=== PATIENT | female | born 1950 | race Caucasian/White ===

== ENCOUNTER 2017-05-20 16:14 | Inpatient (IN) | payer MEDICARE, BC ==
--- NOTE | 2017-05-20 17:37 | RAD ---
INDICATION: Short of breath COMPARISON: November 27, 2015 TECHNIQUE: An AP portable view obtained at 1720 hours is submitted. FINDINGS: Bones/Soft Tissues: There are no acute bony findings. Cardiomediastinal: The heart is normal in size. The central pulmonary vessels and interstitium are prominent consistent with mild interstitial congestion.. Lungs: There are no infiltrates. Pleura: There are no pleural effusions. Other: None IMPRESSION: MILD INTERSTITIAL CONGESTION.
[2017-05-20 17:58] LABS: Hematocrit 35 % (35-47); Hemoglobin 11.7 g/dl (12.0-16.0); Mean Corpuscular HGB Conc 34 g/dl (31-36); Mean Corpuscular Hemoglobin 33 pg (27-31); Mean Corpuscular Volume 99 fL (80-97); Mean Platelet Volume 8 um3 (7.4-10.4); Red Blood Count 3.53 10^6/ul (4.0-5.4); Red Cell Distribution Width 14 % (10.5-15); White Blood Count 13.4 10^3/ul (3.5-10.8)
[2017-05-20 18:15] LABS: Troponin I 0.02 ng/mL (<0.04)
[2017-05-20 18:16] LABS: Albumin 4.2 g/dL (3.2-5.2); BUN/Creatinine Ratio 7.1 (8-20); C Reactive Protein 4.37 mg/L (< 5.00); Calcium 9.6 mg/dL (8.6-10.3); EGFR African American 7.8 (>60); Globulin 3.2 g/dL (2-4); Magnesium 2.9 mg/dL (1.9-2.7); Total Bilirubin 0.4 mg/dL (0.2-1.0); Total Protein 7.4 g/dL (6.4-8.9)
[2017-05-20 18:22] LABS: Potassium 7.7 mmol/L (3.5-5.0)
[2017-05-20] MEDS ORDERED: Insulin REGULAR(*) 1 UNITS UNIT IV PUSH ONE (18:33)
[2017-05-20] MEDS ORDERED: Dextrose 50% Syringe 50 ML* 25 GM/50 ML SYRINGE IV PUSH ONE (18:33)
[2017-05-20 18:45] LABS: TSH (Thyroid Stimulating Horm) 2.75 mcIU/mL (0.34-5.60)
--- NOTE | 2017-05-20 18:48 | ED ---
Marissa Hastings Edward, scribed for Richard Hand MD on 05/20/17 at 1750 . Shortness of Breath - HPI Summary HPI Summary: 66 y/o female presents to ED c/o sudden onset, acute on chronic SOB starting this morning that has gotten progressively worse throughout the day. The SOB is aggravated with standing up and ambulating. Denies pedal edema, pain in the legs. Associated sx: per triage, the pt has weakness in her lower extremities. PMHx COPD, AFIB, emphysema, CHF, dialysis (2x a week). - History of Current Complaint Chief Complaint: EDShortnessOfBreath Time Seen by Provider: 05/20/17 17:46 Hx Obtained From: Patient Onset/Duration: Sudden Onset, Lasting Hours - This morning, Still Present Dyspnea At: Exertion Aggrevating Factors: Movement, Nothing - Standing - Allergy/Home Medications Allergies/Adverse Reactions: Allergies Allergy/AdvReac Type Severity Reaction Status Date / Time Adhesive Tape Allergy Rash Verified 05/17/16 14:20 Heparin Allergy WELTS, Verified 05/17/16 14:20 ITCHY RASH Sulfa Antibiotics Allergy Rash Verified 05/17/16 14:20 Morphine AdvReac SENSITIVE Verified 05/17/16 14:20 TO - STATES SMALL INTERMITTENT DOSES OK avoids NSAIDS AdvReac See Comment Uncoded 05/17/16 14:20 PMH/Surg Hx/FS Hx/Imm Hx Previously Healthy: No Endocrine/Hematology History: Reports: Hx Diabetes Cardiovascular History: Reports: Hx Congestive Heart Failure, Hx Hypertension, Other Cardiovascular Problems/Disorders - atrial fib Denies: Hx Pacemaker/ICD Respiratory History: Reports: Hx Asthma, Hx Chronic Bronchitis, Hx Chronic Obstructive Pulmonary Disease (COPD), Hx Seasonal Allergies GI History: Reports: Hx Gastroesophageal Reflux Disease, Other GI Disorders - PROBLEMS WITH CONSTIPATION History: Reports: Other Problems/Disorders - frequent UTI's Musculoskeletal History: Reports: Hx Arthritis - OSTEO, Other Musculoskeletal History - Degenerative discs Sensory History: Reports: Hx Cataracts, Hx Contacts or Glasses - reading only Denies: Hx Hearing Aid Opthamlomology History: Reports: Hx Cataracts, Hx Contacts or Glasses - reading only Neurological History: Denies: Hx Headaches Psychiatric History: Denies: Hx Anxiety, Hx Depression, Hx Panic Disorder - Cancer History Hx Chemotherapy: No Hx Radiation Therapy: No - Surgical History Surgery Procedure, Year, and Place: RT KNEE REPLACEMENT 2011. LT KNEE 09/13. LSP SURGERY X4 (2001,2003X2, 2003). GALLBLADDER 1996. TOTAL HYSTERECTOMY 1987. TONSILS AGE 7. LT KNEE ACL 1996 Hx Anesthesia Reactions: Yes - RESP. ARREST-2011- WHILE ON THE MORPHINE DRIP PER PATIENT Infectious Disease History: No Infectious Disease History: Denies: Traveled Outside the [place] in Last 30 Days - Social History Alcohol Use: None Hx Substance Use: No Substance Use Type: Reports: None Hx Tobacco Use: No Smoking Status (MU): Never Smoked Tobacco Review of Systems Constitutional: Negative Eyes: Negative ENT: Negative Cardiovascular: Negative Positive: Shortness Of Breath Gastrointestinal: Negative Genitourinary: Negative Musculoskeletal: Negative Negative: Edema Skin: Negative Positive: Weakness - Lower extremities Psychological: Normal All Other Systems Reviewed And Are Negative: Yes Physical Exam Triage Information Reviewed: Yes Vital Signs On Initial Exam: Initial Vitals Temp Pulse Resp BP Pulse Ox 96.5 F 53 28 120/55 100 05/20/17 16:15 05/20/17 16:15 05/20/17 16:15 05/20/17 16:15 05/20/17 16:15 Vital Signs Reviewed: Yes Appearance: Positive: Well-Appearing, No Pain Distress Skin: Positive: Warm, Skin Color Reflects Adequate Perfusion, Dry Head/Face: Positive: Normal Head/Face Inspection Eyes: Positive: EOMI, ELIEZER ENT: Positive: Normal ENT inspection Neck: Positive: Supple, Nontender Respiratory/Lung Sounds: Positive: Clear to Auscultation, Breath Sounds Present , Other - Mild respiratory distress. Limited air movement in lungs. Cardiovascular: Positive: RRR Abdomen Description: Positive: Nontender, Soft Bowel Sounds: Positive: Present Musculoskeletal: Positive: Strength/ROM Intact, Other - Trace pedal edema bilaterally. No calf tenderness Neurological: Positive: Normal, Sensory/Motor Intact, Alert, Oriented to Person Place, Time Psychiatric: Positive: Normal, Affect/Mood Appropriate - Luiz Coma Scale Coma Scale Total: 15 Diagnostics - Vital Signs Vital Signs Temp Pulse Resp BP Pulse Ox 05/20/17 16:15 96.5 F 53 28 120/55 100 - Laboratory Lab Results: Lab Results 05/20/17 05/20/17 05/20/17 Range/Units 17:48 17:48 17:48 WBC 13.4 H (3.5-10.8) 10^3/ul RBC 3.53 L (4.0-5.4) 10^6/ul Hgb 11.7 L (12.0-16.0) g/dl Hct 35 (35-47) % MCV 99 H (80-97) fL MCH 33 H (27-31) pg MCHC 34 (31-36) g/dl RDW 14 (10.5-15) % Plt Count 226 (150-450) 10^3/ul MPV 8 (7.4-10.4) um3 Neut % (Auto) 75.4 (38-83) % Lymph % (Auto) 15.9 L (25-47) % Whitley % (Auto) 6.6 (1-9) % Eos % (Auto) 1.3 (0-6) % Baso % (Auto) 0.8 (0-2) % Absolute Neuts (auto) 10.1 H (1.5-7.7) 10^3/ul Absolute Lymphs (auto) 2.1 (1.0-4.8) 10^3/ul Absolute Monos (auto) 0.9 H (0-0.8) 10^3/ul Absolute Eos (auto) 0.2 (0-0.6) 10^3/ul Absolute Basos (auto) 0.1 (0-0.2) 10^3/ul Absolute Nucleated RBC 0.01 10^3/ul Nucleated RBC % 0.1 INR (Anticoag Therapy) 0.93 (0.89-1.11) APTT 28.3 (26.0-36.3) seconds D-Dimer, Quantitative 278 H (Less Than 230) ng/mL Sodium 122 L (133-145) mmol/L Potassium 7.7 H* (3.5-5.0) mmol/L Chloride 85 L (101-111) mmol/L Carbon Dioxide 28 (22-32) mmol/L Anion Gap 9 (2-11) mmol/L BUN 49 H (6-24) mg/dL Creatinine 6.87 H (0.51-0.95) mg/dL Est GFR ( Amer) 7.8 (>60) Est GFR (Non-Af Amer) 6.0 (>60) BUN/Creatinine Ratio 7.1 L (8-20) Glucose 159 H (70-100) mg/dL Lactic Acid (0.5-2.0) mmol/L Calcium 9.6 (8.6-10.3) mg/dL Magnesium 2.9 H (1.9-2.7) mg/dL Total Bilirubin 0.40 (0.2-1.0) mg/dL AST 21 (13-39) U/L ALT 22 (7-52) U/L Alkaline Phosphatase 75 (34-104) U/L Troponin I 0.02 (<0.04) ng/mL C-Reactive Protein 4.37 (< 5.00) mg/L B-Natriuretic Peptide ( - 100) pg/mL Total Protein 7.4 (6.4-8.9) g/dL Albumin 4.2 (3.2-5.2) g/dL Globulin 3.2 (2-4) g/dL Albumin/Globulin Ratio 1.3 (1-3) Lipase 122 H (11.0-82.0) U/L TSH Pending 05/20/17 05/20/17 Range/Units 17:48 17:48 WBC (3.5-10.8) 10^3/ul RBC (4.0-5.4) 10^6/ul Hgb (12.0-16.0) g/dl Hct (35-47) % MCV (80-97) fL MCH (27-31) pg MCHC (31-36) g/dl RDW (10.5-15) % Plt Count (150-450) 10^3/ul MPV (7.4-10.4) um3 Neut % (Auto) (38-83) % Lymph % (Auto) (25-47) % Whitley % (Auto) (1-9) % Eos % (Auto) (0-6) % Baso % (Auto) (0-2) % Absolute Neuts (auto) (1.5-7.7) 10^3/ul Absolute Lymphs (auto) (1.0-4.8) 10^3/ul Absolute Monos (auto) (0-0.8) 10^3/ul Absolute Eos (auto) (0-0.6) 10^3/ul Absolute Basos (auto) (0-0.2) 10^3/ul Absolute Nucleated RBC 10^3/ul Nucleated RBC % INR (Anticoag Therapy) (0.89-1.11) APTT (26.0-36.3) seconds D-Dimer, Quantitative (Less Than 230) ng/mL Sodium (133-145) mmol/L Potassium (3.5-5.0) mmol/L Chloride (101-111) mmol/L Carbon Dioxide (22-32) mmol/L Anion Gap (2-11) mmol/L BUN (6-24) mg/dL Creatinine (0.51-0.95) mg/dL Est GFR ( Amer) (>60) Est GFR (Non-Af Amer) (>60) BUN/Creatinine Ratio (8-20) Glucose (70-100) mg/dL Lactic Acid 1.7 (0.5-2.0) mmol/L Calcium (8.6-10.3) mg/dL Magnesium (1.9-2.7) mg/dL Total Bilirubin (0.2-1.0) mg/dL AST (13-39) U/L ALT (7-52) U/L Alkaline Phosphatase (34-104) U/L Troponin I (<0.04) ng/mL C-Reactive Protein (< 5.00) mg/L B-Natriuretic Peptide 692 H ( - 100) pg/mL Total Protein (6.4-8.9) g/dL Albumin (3.2-5.2) g/dL Globulin (2-4) g/dL Albumin/Globulin Ratio (1-3) Lipase (11.0-82.0) U/L TSH Result Diagrams: 05/20/17 17:48 05/20/17 17:48 Lab Statement: Any lab studies that have been ordered have been reviewed, and results considered in the medical decision making process. - Radiology CXR Xray Interpretation: Positive (See Comments) - MILD INTERSTITIAL CONGESTION. Radiology Interpretation Completed By: Radiologist - EKG 1 EKG Rhythm: Atrial Fibrillation - Bradycardia @ [address] Segment: Normal EKG Interpretation: 17:26 Course/Dx - Course Course Of Treatment: PATIENT TREATED FOR HYPERKALEMIA IN ED. ADMIT HOSPITALIST GUARDED. CRITICAL CARE TIME LESS THAN 30 MINUTES. - Diagnoses Provider Diagnoses: Hyperkalemia, Renal failure - Physician Notifications Discussed Care of Patient With: Oskar Weir Time Discussed With Above Provider: 18:20 Instructed by Provider To: Admit As Inpatient Discharge - Discharge Plan Condition: Guarded Disposition: ADMITTED TO [facility] Referrals: Maylin Hutchins MD [Primary Care Provider] - The documentation as recorded by the Marissa herron Edward accurately reflects the service I personally performed and the decisions made by me, Richard Hand MD.
[2017-05-20] MEDS ORDERED: Sodium Polystyrene ORAL.SOL* 15 GM/60 ML BTL PO ONE (19:04)
[2017-05-20] MEDS ORDERED: Albuterol 2.5 MG/3 ML NEB.SOL* (0.083%) INH PRN (19:24)
[2017-05-20] MEDS ORDERED: Dextrose 50% Syringe 50 ML* 25 GM/50 ML SYRINGE IV PUSH PRN (19:33)
[2017-05-20] MEDS: Insulin LISPRO* 1 UNITS UNIT SUBCUT SCH (20:43)
[2017-05-20] MEDS ORDERED: Magnesium Oxide TAB* 400 MG PO SCH (21:00)
[2017-05-20] MEDS: Gabapentin CAP(*) 100 MG PO SCH (21:15)
[2017-05-20] MEDS: Pregabalin CAP(*) 25 MG PO SCH (21:15)
[2017-05-20] MEDS: Calcium Acetate CAP* 667 MG PO SCH (21:15)
[2017-05-20] MEDS: predniSONE TAB* 20 MG PO SCH (21:15)
[2017-05-20] MEDS: hydrOXYzine HCL TAB* 50 MG PO SCH (21:16)
[2017-05-20] MEDS: Apixaban* 2.5 MG TAB PO SCH (21:16)
[2017-05-20 23:05] LABS: BUN/Creatinine Ratio 7.5 (8-20); Calcium 9.6 mg/dL (8.6-10.3); EGFR African American 7.4 (>60); EGFR Non-African American 5.7 (>60)
[2017-05-20 23:11] LABS: Potassium 6.8 mmol/L (3.5-5.0)
--- NOTE | 2017-05-20 23:34 | HP ---
CC: Maylin Hutchins MD * HISTORY AND PHYSICAL: DATE OF ADMISSION: 05/20/17 PRIMARY CARE PHYSICIAN: Maylin Hutchins MD CHIEF COMPLAINT: Shortness of breath and weakness. HISTORY OF PRESENT ILLNESS: Ms. Green is a 66-year-old female with a past medical history of hypotension, AFib on Eliquis, end-stage renal disease on dialysis, COPD on 3 L home oxygen, diabetes who presents to the hospital with shortness of breath and weakness. The patient states she was in her usual state of health. This morning upon awakening, she notes she felt more shortness of breath than usual. She states she used her inhalers and put her on 3 L nasal cannula, which she only uses as needed at home. This did not seem to help very much. Around noon, she then noticed she felt very weak. She had difficulty getting up and getting around her apartment even with the use of her walker, which she rarely uses inside. She was concerned because she had similar symptoms in the past when her potassium was high. The last time this happened, was treated at Dialysis as she was able to get there okay. Her last dialysis session was 2 days ago on 05/18/17, and she states it was a normal session for her, she was able to complete it; however, she did have some hypotension, which is not unusual. She states her systolic blood pressures often drop into the 60s and 70s with dialysis and occasionally she needs to get fluid back. She denies any associated chest pain. She has had a mild nonproductive cough. Denies any wheezing. No abdominal pain, nausea, vomiting, fever, chills, or lower extremity edema. In the emergency department, she was requiring 5 L of oxygen, had some hypotension and was found to have a potassium of 7.7 along with low sodium. PAST MEDICAL HISTORY: 1. AFib, on Eliquis. 2. COPD, on 3 L home oxygen as needed. 3. Diabetes. 4. Hypertension. 5. End-stage renal disease, on dialysis. PAST SURGICAL HISTORY: 1. Cholecystectomy. 2. Appendectomy. 3. Hysterectomy. 4. Bilateral knee replacements. HOME MEDICATIONS: 1. Hydroxyzine 50 mg by mouth 3 times daily. 2. Glipizide 10 mg by mouth daily. 3. Benadryl 25 mg by mouth 3 times daily. 4. Incruse Ellipta 1 puff inhaled daily. 5. Torsemide 100 mg by mouth daily. 6. Detrol LA 4 mg by mouth daily. 7. Lyrica 25 mg by mouth 3 times daily. 8. Omeprazole 40 mg by mouth daily. 9. Multivitamin 1 tablet by mouth daily. 10. Singulair 10 mg by mouth daily. 11. Metoprolol tartrate 25 mg by mouth daily. 12. Reglan 20 mg by mouth daily. 13. Magnesium oxide 400 mg by mouth 2 times daily. 14. Lisinopril 10 mg by mouth daily. 15. Synthroid 25 mcg by mouth daily. 16. Gabapentin 100 mg by mouth 3 times daily. 17. Fluticasone 1 puff inhaled 2 times daily. 18. Uloric 40 mg by mouth daily. 19. Colace 100 mg to 300 mg by mouth daily as needed for constipation. 20. Celexa 10 mg by mouth daily. 21. Sensipar 60 mg by mouth daily. 22. PhosLo 2 tabs by mouth 3 times daily. 23. Atorvastatin 10 mg by mouth daily. 24. Eliquis 2.5 mg by mouth 2 times daily. ALLERGIES: The patient reports allergies to SUBCU HEPARIN, SULFA ANTIBIOTICS, high doses of MORPHINE, ADHESIVE TAPES, and she avoids NSAIDS. FAMILY HISTORY: Significant for mother with CKD. SOCIAL HISTORY: The patient denies any history of tobacco abuse. No alcohol use or drug use. She lives at home with her mother. REVIEW OF SYSTEMS: A 12-point review of systems negative except for that as noted in the HPI. PHYSICAL EXAMINATION GENERAL: The patient is a middle-aged obese female, appears older than stated age, lying in bed, in mild respiratory distress. VITAL SIGNS: On admission, temperature 96.5, heart rate of 53, respiratory rate of 28, O2 saturation 100% on 5 L, blood pressure 120/55. HEENT: Head normocephalic, atraumatic. Eyes: Pupils equal, round, and reactive to light and accommodation. Anicteric sclerae. ENT: Dry mucous membranes. No cervical adenopathy. LUNGS: Distant breath sounds. Poor air movement. No wheezing appreciated. CARDIOVASCULAR: Mild bradycardia. No murmurs, gallops, or rubs. ABDOMEN: Obese, soft, nontender, and nondistended. Bowel sounds are positive. EXTREMITIES: No cyanosis, clubbing. The patient has some very mild lower extremity edema. Fistulas in the right upper extremity with a palpable thrill. NEURO: The patient is alert, oriented x3. No focal neurological deficits. SKIN: Warm, dry, and well perfused. LABORATORY DATA AND DIAGNOSTIC STUDIES: White blood cell count of 13.4, hematocrit of 35, platelets of 226,000. INR 0.93. D-dimer of 278. Sodium of 122, potassium of 7.7, chloride of 85, BUN of 49, creatinine of 6.87, and glucose of 159. Lactic acid of 1.7. Magnesium of 2.9. LFTs within normal limits. Troponin 0.02. CRP of 4.37. B natriuretic peptide of 692. Lipase of 122. TSH of 2.75. EKG personally reviewed shows some prominent T waves in 3 and aVF, chronic T wave inversions in 1 and aVL, chronic lateral flattened T waves, AFib. Chest x- ray personally reviewed shows some interstitial congestion. ASSESSMENT AND PLAN: Shortness of breath, weakness, and hyperkalemia in a 66- year- old female with past medical history of atrial fibrillation on Eliquis, chronic obstructive pulmonary disease, diabetes, hypertension, end-stage renal disease on dialysis. 1. Hyperkalemia. End-stage renal disease, on dialysis. The patient's K was found to be 7.7 with some minimal EKG changes. We will give her stat dose of calcium gluconate along with insulin and dextrose and 30 g of Kayexalate. I spoke with Dr. Benítez on the phone who states that with her borderline blood pressures and lack of EKG changes, he does not feel she needs to be urgently dialyzed at this time. He recommended the above medical interventions and recheck of potassium. The patient does see Dr. Gibbs who is her director of customer acquisition. Dr. Benítez stated he usually prefers his patient to be transferred to [facility]; however, the patient did not want to do this when it was discussed with her and she states this is too far from her family. We will recheck BMP in a few hours after giving some time for the Kayexalate to take effect and we will plan for the patient's regularly scheduled dialysis tomorrow morning. 2. Shortness of breath. Etiology is not clear. The patient does not have any clear evidence of infection on her chest x-ray. White blood cell count is mildly elevated; however, her CRP is normal. She does have some elevated B- natriuretic peptide; however, it is lower than it has been in the past. She had some interstitial congestion on chest x-ray; however, at this time I am hesitant to give her any diuretics as her blood pressures are quite soft. PE is unlikely with minimally elevated d-dimer and patient on Eliquis. I am wondering if she may have some component of chronic obstructive pulmonary disease exacerbation as she does not seem to have very good air movement. We will start [id number] DuoNebs with p.r.n. albuterol as well as starting her on some oral prednisone. Wean her oxygen as tolerated. 3. Hyponatremia. Possibly due to fluid overload. We will check serum osmolality in the urine, sodium osmolality. As above, we will recheck a BMP in 4 hours. I am hesitant to give her any fluid as she seems to be overloaded at this time. She is not displaying any symptoms of hyponatremia. I think we can just see what her sodium does without any acute interventions at this time with plans for dialysis in the morning. 2. End-stage renal disease, on dialysis. As noted above, we will plan to dialyze the patient tomorrow. Continue her PhosLo, Sensipar. She is a Sunday, Sunday, Sunday patient. 3. Atrial fibrillation. We will continue the patient's Eliquis for now. We will hold metoprolol in the setting of her bradycardia and hypertension. 4. Diabetes. Hold the patient's home glipizide. Start insulin sliding scale. 5. Hypertension. Hold her metoprolol and lisinopril for now. 6. DVT prophylaxis. The patient reports allergy to SUBCU HEPARIN. We will write for SCDs. 7. Code status. The patient is full code. TIME SPENT: Total time spent on this admission, 65 minutes, with over half the time spent [id number] with the patient in counseling and coordinating care. [id number]/[facility] #: [id number] NABILA
[2017-05-21] MEDS: Mometasone/Formoter 200/5 MDI INH SCH ×3 (02:54→21:35)
[2017-05-21] MEDS: Nystatin CREAM* 15 GM TUBE TOPICAL SCH ×4 (04:50→20:45)
[2017-05-21] MEDS: Levothyroxine TAB* 25 MCG TAB PO SCH (04:54)
[2017-05-21 05:35] LABS: BUN/Creatinine Ratio 8.1 (8-20); Calcium 9.4 mg/dL (8.6-10.3); EGFR Non-African American 5.4 (>60)
[2017-05-21 05:43] LABS: Potassium 7.4 mmol/L (3.5-5.0)
[2017-05-21] MEDS ORDERED: Insulin REGULAR(*) 1 UNITS UNIT IV PUSH ONE (06:19)
[2017-05-21] MEDS ORDERED: Dextrose 50% Syringe 50 ML* 25 GM/50 ML SYRINGE IV PUSH ONE (06:19)
[2017-05-21] MEDS ORDERED: Sodium Polystyrene ORAL.SOL* 15 GM/60 ML BTL PO ONE (06:19)
[2017-05-21] MEDS ORDERED: Atorvastatin* 10 MG TAB PO SCH ×2 (09:00→18:00)
[2017-05-21] MEDS: Calcium Acetate CAP* 667 MG PO SCH ×3 (09:20→20:44)
[2017-05-21] MEDS: predniSONE TAB* 20 MG PO SCH (09:21)
[2017-05-21] MEDS: Gabapentin CAP(*) 100 MG PO SCH ×3 (09:21→20:42)
[2017-05-21] MEDS: Citalopram TAB* 10 MG PO SCH (09:21)
[2017-05-21] MEDS: hydrOXYzine HCL TAB* 50 MG PO SCH ×3 (09:22→20:45)
[2017-05-21] MEDS: Pregabalin CAP(*) 25 MG PO SCH ×2 (09:22→20:42)
[2017-05-21] MEDS: Metoclopramide TAB* 10 MG PO SCH (09:22)
[2017-05-21] MEDS: Apixaban* 2.5 MG TAB PO SCH ×2 (09:23→20:41)
[2017-05-21] MEDS: Omeprazole CAP* 20 MG PO SCH (09:23)
[2017-05-21] MEDS: Montelukast Sodium TAB* 10 MG PO SCH (09:23)
[2017-05-21] MEDS: Cinacalcet TAB* 30 MG PO SCH ×2 (09:24→14:51)
[2017-05-21] MEDS: Insulin LISPRO* 1 UNITS UNIT SUBCUT SCH ×3 (09:40→17:53)
[2017-05-21] MEDS ORDERED: Midodrine (NF) 5 MG TAB PO ONE ×2 (10:00)
[2017-05-21] MEDS ORDERED: Heparin DIALYSIS ONLY(*) 1,000 UNITS/ML VIAL DIALYSIS ONE (10:00)
[2017-05-21 10:19] LABS: Calcium 9.1 mg/dL (8.6-10.3); EGFR African American 6.5 (>60); EGFR Non-African American 5.1 (>60); Potassium 5.9 mmol/L (3.5-5.0)
[2017-05-21] MEDS: Metoprolol Tartrate TAB* 25 MG PO SCH (11:41)
[2017-05-21] MEDS ORDERED: Insulin LISPRO* 1 UNITS UNIT SUBCUT ONE (12:36)
--- NOTE | 2017-05-21 14:19 | PN ---
Subjective Date of Service: 05/21/17 Interval History: Patient seen this morning just after initiation of HD. Reports breathing seems to be improved today. Unclear if weakness has improved as she has not been out of bed yet. Had not had BM after kayexalate. Family History: Unchanged from Admission Social History: Unchanged from Admission Past Medical History: Unchanged from Admission Objective Active Medications: Albuterol (Ventolin 2.5 Mg/3 Ml Neb.Ashley*) 2.5 mg INH [id number] AWAKE PRN Apixaban (Eliquis) 2.5 mg PO BID KYE Atorvastatin Calcium (Lipitor*) 10 mg PO QPM KYE Calcium Acetate (Phoslo Cap*) 1,334 mg PO TID KYE Cinacalcet (Sensipar Tab*) 60 mg PO DAILY KYE Citalopram Hydrobromide (Celexa Tab*) 10 mg PO DAILY KYE Dextrose (D50w Syringe 50 Ml*) 12.5 gm IV PUSH .FOR FS < 60 - SS PRN Gabapentin (Neurontin Cap(*)) 100 mg PO TID KYE Hydroxyzine HCl (Atarax Tab*) 50 mg PO TID KYE Insulin Human Lispro (Humalog*) 0 - 10 units SUBCUT AC KYE Levothyroxine Sodium (Synthroid Tab*) 25 mcg PO DAILY@0600 KYE Metoclopramide HCl (Reglan Tab*) 20 mg PO DAILY KYE Metoprolol Tartrate (Lopressor Tab*) 25 mg PO DAILY KYE Mometasone Furoate/Formoterol Fumar (Dulera 200/5 Mdi*) 2 puff INH BID KYE Montelukast Sodium (Singulair Tab*) 10 mg PO DAILY KYE Nystatin (Nystatin Cream*) 1 applic TOPICAL TID KYE Omeprazole (Prilosec Cap*) 40 mg PO DAILY@0730 KYE Prednisone (Deltasone Tab*) 40 mg PO DAILY KYE Pregabalin (Lyrica Cap(*)) 25 mg PO BID KYE Vital Signs 05/20/17 05/20/17 05/20/17 18:52 19:00 19:21 Temperature Pulse Rate 51 51 55 Respiratory 20 17 15 Rate Blood Pressure 115/71 128/72 (mmHg) O2 Sat by Pulse 99 100 99 Oximetry 05/20/17 05/20/17 05/20/17 20:30 20:41 20:45 Temperature 96.0 F Pulse Rate 53 53 54 Respiratory 20 20 16 Rate Blood Pressure 141/82 128/72 123/66 (mmHg) O2 Sat by Pulse 97 97 100 Oximetry 05/21/17 05/21/17 05/21/17 11:45 12:00 12:01 Temperature Pulse Rate 91 87 88 Respiratory 22 18 20 Rate Blood Pressure 94/59 109/77 (mmHg) O2 Sat by Pulse 98 97 97 Oximetry 05/21/17 05/21/17 14:00 14:01 Temperature Pulse Rate 90 90 Respiratory 12 15 Rate Blood Pressure 101/71 (mmHg) O2 Sat by Pulse 99 98 Oximetry Oxygen Devices in Use Now: Nasal Cannula - 4L Appearance: Middle-aged, F, laying in bed in NAD Eyes: No Scleral Icterus Ears/Nose/Mouth/Throat: Mucous Membranes Moist Neck: NL Appearance and Movements; NL JVP Respiratory: Symmetrical Chest Expansion and Respiratory Effort, Clear to Auscultation, - - distant breath sounds Cardiovascular: NL Sounds; No Murmurs; No JVD, RRR Abdominal: NL Sounds; No Tenderness; No Distention Lymphatic: No Cervical Adenopathy Extremities: - - RUE fistula Neurological: Alert and Oriented x 3 Result Diagrams: 05/20/17 17:48 05/21/17 09:31 Microbiology and Other Data: Microbiology 05/20/17 20:10 Nasal Screen MRSA (PCR)(AMARA) - Final Nasal Mrsa Negative Assess/Plan/Problems-Billing Assessment: Acute on chronic hypoxic respiratory failure 2/2 fluid overload vs COPD exacerbation, hyperkalemia and hyponatremia in a 66 yo F with hx of ESRD on HD ( MWF), AFib on Eliquis, HTN and DM - Patient Problems (1) Acute and chronic respiratory failure with hypoxia Current Visit: No Comment: 2/2 fluid overload, ESRD vs COPD exacerbation. No wheezing this AM, continue prednisone, inhalers, prn nebs. Fluid removal with HD should help. Wean O2 as able. (2) Hyperkalemia Current Visit: Yes Comment: Initially responded to meds but elevated again this morning. No major EKG changes. Should improve with HD, will redraw BMP after HD (3) Hyponatremia Current Visit: Yes Comment: Na low, likely from fluid overload. Recheck after HD. (4) ESRD (end stage renal disease) on dialysis Current Visit: Yes SNOMED Code(s): 959219519 Comment: HD 05/21. Continue home meds (5) Afib Current Visit: Yes Comment: Resume Metoprolol this AM, continue Eliquis. (6) Hypertension Current Visit: No Comment: Holding Lisinopril. (7) Type II diabetes mellitus Current Visit: No Comment: HISS. Holding homne Glipizide. (8) DVT prophylaxis Current Visit: No Comment: SCDs
[2017-05-21 16:12] LABS: BUN/Creatinine Ratio 6.1 (8-20); Calcium 9.4 mg/dL (8.6-10.3); EGFR African American 14.1 (>60); Potassium 3.9 mmol/L (3.5-5.0)
[2017-05-21] MEDS ORDERED: Albuterol/Ipratropium NEB.SOL* Albuterol 2.5 MG/Ipratropium 0.5 MG 3 ML INH SCH (19:25)
[2017-05-22] MEDS: Levothyroxine TAB* 25 MCG TAB PO SCH (06:48)
[2017-05-22 07:31] LABS: BUN/Creatinine Ratio 8.4 (8-20); Blood Urea Nitrogen 46 mg/dL (6-24); CO2 Carbon Dioxide 27 mmol/L (22-32); Calcium 9.4 mg/dL (8.6-10.3); Chloride 87 mmol/L (101-111); EGFR African American 10.1 (>60); EGFR Non-African American 7.9 (>60); Glucose 146 mg/dL (70-100); Sodium 129 mmol/L (133-145)
[2017-05-22 07:39] LABS: Anion Gap 15 mmol/L (2-11)
[2017-05-22] MEDS: Omeprazole CAP* 20 MG PO SCH (08:55)
[2017-05-22] MEDS: Metoprolol Tartrate TAB* 25 MG PO SCH (08:55)
[2017-05-22] MEDS: Gabapentin CAP(*) 100 MG PO SCH (08:55)
[2017-05-22] MEDS: hydrOXYzine HCL TAB* 50 MG PO SCH (08:56)
[2017-05-22] MEDS: Citalopram TAB* 10 MG PO SCH (08:56)
[2017-05-22] MEDS: Pregabalin CAP(*) 25 MG PO SCH (08:56)
[2017-05-22] MEDS: predniSONE TAB* 20 MG PO SCH (08:57)
[2017-05-22] MEDS: Calcium Acetate CAP* 667 MG PO SCH (08:57)
[2017-05-22] MEDS: Montelukast Sodium TAB* 10 MG PO SCH (08:57)
[2017-05-22] MEDS: Nystatin CREAM* 15 GM TUBE TOPICAL SCH (08:58)
[2017-05-22] MEDS: Metoclopramide TAB* 10 MG PO SCH (08:58)
[2017-05-22] MEDS: Mometasone/Formoter 200/5 MDI INH SCH (08:58)
[2017-05-22] MEDS: Insulin LISPRO* 1 UNITS UNIT SUBCUT SCH (09:23)
--- NOTE | 2017-05-22 10:55 | DCNOTE ---
Patient seen this morning. Feels well, back to baseline. Ambulated with PT with no issues. On exam, RRR, s1 and s2 present, no m/g/r, lungs CTA B/L, slightly distant, abd obese, soft, NTND, BS+ Plan to discharge home today with a few additional days of PO prednisone. Labs stable. Has another HD appt tomorrow.
[2017-05-22] MEDS ORDERED: Torsemide TAB* 100 MG PO SCH (11:00)
[2017-05-22] MEDS: Apixaban* 2.5 MG TAB PO SCH (11:38)
[2017-05-22] MEDS: Cinacalcet TAB* 30 MG PO SCH (11:38)
[2017-05-22 12:28] VITALS: BP 103/48
--- NOTE | 2017-05-23 03:54 | DS ---
CC: Dr. Maylin Hutchins; Dr. Mayo Gibbs, fax [phone] * DISCHARGE SUMMARY: DATE OF ADMISSION: 05/20/17 DATE OF DISCHARGE: 05/22/17 PRIMARY CARE PHYSICIAN: Dr. Maylin Hutchins. PRINCIPAL DISCHARGE DIAGNOSES: 1. Shortness of breath secondary to fluid overload, possibly chronic obstructive pulmonary disease exacerbation. 2. Hyperkalemia. 3. Hyponatremia. SECONDARY DIAGNOSES: 1. Atrial fibrillation, on Eliquis. 2. Hypertension. 3. Diabetes. 4. End-stage renal disease, on dialysis. STUDIES DONE DURING HOSPITALIZATION: Chest x-ray, impression: Mild interstitial congestion. DISCHARGE MEDICATION REGIMEN: 1. Prednisone 40 mg by mouth daily x3 days. 2. Torsemide 100 mg by mouth daily. 3. Incruse Ellipta 1 puff inhaled daily. 4. Benadryl 25 mg by mouth 3 times daily. 5. Glipizide 10 mg by mouth daily. 6. Hydroxyzine 50 mg by mouth 3 times daily. 7. Metoprolol tartrate 25 mg by mouth daily. 8. Singulair 10 mg by mouth daily. 9. Multivitamin 1 tablet by mouth daily. 10. Omeprazole 40 mg by mouth daily. 11. Pregabalin 25 mg by mouth 2 times daily. 12. Detrol LA 4 mg by mouth daily. 13. Gabapentin 100 mg by mouth 3 times daily. 14. Synthroid 25 mcg by mouth daily. 15. Lisinopril 10 mg by mouth daily. 16. Magnesium oxide 400 mg by mouth 2 times daily. 17. Reglan 20 mg by mouth daily. 18. Citalopram 10 mg by mouth daily. 19. Colace 1-3 tablets by mouth daily as needed for constipation. 20. Uloric 40 mg by mouth daily. 21. Advair 1 puff inhaled 2 times daily. 22. Apixaban 2.5 mg by mouth 2 times daily. 23. Atorvastatin 10 mg by mouth daily. 24. Calcium acetate 2 tablets by mouth 3 times daily. 25. Sensipar 60 mg by mouth daily. HISTORY OF PRESENT ILLNESS/ HOSPITAL SUMMARY: Please see the full history and physical by myself for full details. Briefly, Ms. Green is a 66-year-old female with a past medical history as above, who presented to the hospital with 1 day of shortness of breath and weakness. In the emergency department, the patient was found to be hyperkalemic with a potassium of 7.7. On admission, she was also hyponatremic with sodium of 122. She had a mild leukocytosis also at 13. The patient was discussed with Dr. Benítez who recommended insulin D50, calcium gluconate and Kayexalate to try to get her potassium down. This seemed to improve a bit overnight; however, by the following morning the potassium was back up to 7.4. She underwent dialysis with removal of 4 L. The patient was significantly heavier than her dry weight. After dialysis, the patient's labs normalized. On the day of discharge, her sodium was 129, potassium was 3.7. The patient's breathing symptoms resolved. It seems like they are mostly due to fluid overload; however, there may have been some component of COPD exacerbation, so she will be treated with a few additional days of oral steroids. Please note the patient was given the option of transfer to [facility] as Dr. Gibbs prefers his patients to go there; however, she refused as she did not want to be far away from her family. The patient will follow up with her PCP and has a scheduled HD session tomorrow, 05/23/17. TIME SPENT: Total time spent on this discharge, 45 minutes. This is a summary of the hospitalization. Please see the full medical record for further details. [id number] #: [id number] MTDD
== END 2017-05-22 13:15 | disposition home or self-care (01) | DRG 640 ==
LOC: ED 16:14 → ICU 18:34 → MED 05-21 16:24
PROVIDERS: ADMIT Hospitalist; ATTEND Hospitalist
DX: E87.70 Fluid overload, unspecified (principal); N18.6 End stage renal disease; J96.21 Acute and chronic respiratory failure with hypoxia; I12.0 Hypertensive chronic kidney disease with stage 5 chronic kidney disease or end stage renal disease; E11.22 Type 2 diabetes mellitus with diabetic chronic kidney disease; I48.91 Unspecified atrial fibrillation; J44.1 Chronic obstructive pulmonary disease with (acute) exacerbation; E87.5 Hyperkalemia; E87.1 Hypo-osmolality and hyponatremia; Z79.01 Long term (current) use of anticoagulants; Z99.2 Dependence on renal dialysis; Z99.81 Dependence on supplemental oxygen; Z79.84 Long term (current) use of oral hypoglycemic drugs; Z79.899 Other long term (current) drug therapy; Z88.6 Allergy status to analgesic agent; Z88.5 Allergy status to narcotic agent; Z88.2 Allergy status to sulfonamides; Z88.8 Allergy status to other drugs, medicaments and biological substances; Z91.048 Other nonmedicinal substance allergy status; Z84.1 Family history of disorders of kidney and ureter
CPT/HCPCS: 36415; 71010; 80048; 80053; 83605; 83690; 83735; 83880; 83930; 84443; 84484; 85025; 85379; 85610; 85730; 86140; 87641; 93005; 94640; 94760; A9270-GY; J0610; J1644; J7512

== ENCOUNTER 2017-06-08 10:29 | Emergency (ER) | payer MEDICARE, BC ==
[2017-06-08 10:43] VITALS: BP 102/68
--- NOTE | 2017-06-08 11:14 | UC ---
Respiratory Complaint HPI - HPI Summary HPI Summary: 66 yo female with right sided CP /cough and fever She has renal failure and had dialysis today Noted to have a fever of 101 had WBC of 22K with 13 % bands She had blood cultures done and was given 2 gms of vanco IV She says she was sent here for a CXR and antibiotics orders I suggest we send her to the ER for consideration of admission.. She declines - History of Current Complaint Chief Complaint: UCRespiratory Stated Complaint: COUGH RIGHT SIDE PAIN Time Seen by Provider: 06/08/17 10:55 Hx Obtained From: Patient Hx Last Menstrual Period: n/a Onset/Duration: Sudden Onset, Lasting Days Timing: Constant Severity Initially: Mild Severity Currently: Mild Pain Intensity: 4 Pain Scale Used: 0-10 Numeric Character: Cough: Nonproductive Aggravating Factors: Nothing Alleviating Factors: Nothing Associated Signs And Symptoms: Positive: Dyspnea - at her baseline, Fever, Pleuritic Chest Pain - Allergies/Home Medications Allergies/Adverse Reactions: Allergies Allergy/AdvReac Type Severity Reaction Status Date / Time Adhesive Tape Allergy Rash Verified 06/08/17 10:43 Heparin Allergy WELTS, Verified 06/08/17 10:43 ITCHY RASH Sulfa Antibiotics Allergy Rash Verified 06/08/17 10:43 Morphine AdvReac SENSITIVE Verified 06/08/17 10:43 TO - STATES SMALL INTERMITTENT DOSES OK avoids NSAIDS AdvReac See Comment Uncoded 06/08/17 10:43 Home Medications: Home Medications Apixaban* [Eliquis*] 2.5 mg PO BID 06/08/17 [History Confirmed 06/08/17] Atorvastatin* [Lipitor*] 10 mg PO DAILY 06/08/17 [History Confirmed 06/08/17] B-Complex W/ C & Folic Acid [Renal-Silverio 0.8 mg] 1 tab PO DAILY 06/08/17 [ History Confirmed 06/08/17] Calcium Acetate CAP* [Phoslo CAP*] 667 mg PO TID 06/08/17 [History Confirmed 05/17] Cinacalcet TAB* [Sensipar TAB*] 30 mg PO BID 06/08/17 [History Confirmed ] Citalopram TAB* [CeleXA TAB*] 10 mg PO DAILY 06/08/17 [History Confirmed ] Diphenhydramine HCl [Benadryl Allergy 25 MG TAB] 25 mg PO BID 06/08/17 [History Confirmed 06/08/17] Docusate CAP* [Colace Cap*] 100 mg PO BID 06/08/17 [History Confirmed 06/08/17] Febuxostat(NF) [Uloric(NF)] 40 mg PO DAILY 06/08/17 [History Confirmed 06/08/17] Fluticasone-Salmeterol 250-50* [Advair Diskus 250-50*] 1 puff INH BID 06/08/17 [ History Confirmed 06/08/17] Gabapentin CAP(*) [Neurontin 100 mg CAP(*)] 100 mg PO TID 06/08/17 [History Confirmed 06/08/17] Levothyroxine TAB* [Synthroid TAB*] 25 mcg PO DAILY 06/08/17 [History Confirmed 06/08/17] Lisinopril TAB* [Prinivil TAB*] 10 mg PO DAILY 06/08/17 [History Confirmed 06/08] Magnesium Oxide TAB* [MagOx 400 TAB*] 400 mg PO BID 06/08/17 [History Confirmed 06/08/17] Metoclopramide TAB* [Reglan TAB*] 10 mg PO BID 06/08/17 [History Confirmed 06/08] Metoprolol Tartrate TAB* [Lopressor TAB*] 25 mg PO DAILY 06/08/17 [History Confirmed 06/08/17] Montelukast Sodium TAB* [Singulair TAB*] 10 mg PO DAILY 06/08/17 [History Confirmed 06/08/17] Multiple Vitamins W/ Minerals [Multivitamin Adults] 1 tab PO DAILY 06/08/17 [ History Confirmed 06/08/17] Omeprazole CAP* [Prilosec CAP* 20 MG] 40 mg PO DAILY 06/08/17 [History Confirmed 06/08/17] Pregabalin CAP(*) [Lyrica CAP(*)] 25 mg PO BID 06/08/17 [History Confirmed 06/08] Tolterodine Tartrate [Detrol LA] 4 mg PO DAILY 06/08/17 [History Confirmed 06/08] Torsemide TAB* [Demadex*] 100 mg PO DAILY 06/08/17 [History Confirmed 06/08/17] Umeclidinium [place] [Incruse Ellipta] 62.5 mcg IN DAILY 06/08/17 [History Confirmed 06/08/17] glipiZIDE TAB* [Glucotrol TAB*] 10 mg PO DAILY 06/08/17 [History Confirmed 06/08] hydrOXYzine HCL TAB* [Atarax TAB 50 MG *] 50 mg PO TID 06/08/17 [History Confirmed 06/08/17] PMH/Surg Hx/FS Hx/Imm Hx Endocrine History: Diabetes Cardiovascular History: Hypertension GI/ History: Renal Disease - Surgical History Surgical History: Yes Surgery Procedure, Year, and Place: RT KNEE REPLACEMENT 2011. LT KNEE 09/13. LSP SURGERY X4 (2001,2002X2, 2003). GALLBLADDER 1996. TOTAL HYSTERECTOMY 1987. TONSILS AGE 7. LT KNEE ACL 1996 - Family History Known Family History: Positive: Hypertension - Social History Alcohol Use: None Substance Use Type: None Smoking Status (MU): Never Smoked Tobacco - Immunization History Most Recent Influenza Vaccination: no Most Recent Tetanus Shot: about 3 years ago Most Recent Pneumonia Vaccination: About 4 years ago Review of Systems Constitutional: Fever Skin: Negative Eyes: Negative ENT: Negative Respiratory: Shortness Of Breath, Cough Cardiovascular: Chest Pain Gastrointestinal: Negative Genitourinary: Negative Motor: Negative Neurovascular: Negative Musculoskeletal: Negative Neurological: Negative Psychological: Negative Is Patient Immunocompromised?: Yes - DM/CRF All Other Systems Reviewed And Are Negative: Yes Physical Exam Triage Information Reviewed: Yes Appearance: Well-Appearing - no toxic appearing Vital Signs: Initial Vital Signs Temp 98.2 F 06/08/17 10:35 Pulse 99 06/08/17 10:35 BP 102/68 06/08/17 10:35 Pulse Ox 94 06/08/17 10:35 Eyes: Positive: Conjunctiva Clear ENT: Positive: Hearing grossly normal. Negative: Nasal congestion, Nasal drainage, Trismus, Muffled/hoarse voice Neck: Positive: Supple Respiratory: Positive: Lungs clear, Normal breath sounds, No respiratory distress, No accessory muscle use Cardiovascular: Positive: RRR Neurological: Positive: Alert Psychological Exam: Normal Skin Exam: Normal UC Diagnostic Evaluation - Laboratory O2 Sat by Pulse Oximetry: 94 - low normal/not hypoxic - Radiology Xray Interpretation: Positive (See Comments) - NEW RIGHT BASILAR INFILTRATE Radiology Interpretation Completed By: Radiologist Respiratory Course/Dx - Differential Dx/Diagnosis Provider Diagnoses: Right lower lobe pneumonia Discharge - Discharge Plan Condition: Guarded Disposition: HOME Prescriptions: Levofloxacin TAB* [Levaquin TAB*] 250 mg PO DAILY #3 tab Patient Education Materials: Pneumonia (ED) Referrals: Maylin Hutchins MD [Primary Care Provider] - As Soon As Possible Additional Instructions: With your many medical problems and elevated white cell count I think the most prudent thing would be having this treated as an inpatient If you change you mind or start feeling sicker I suggest you go to the ER You were given a dose of levaquin here Your next dose is due Sunday around noon and every 48 hours until finished check your temp frequently If you are still febrile after 48 hours go to the ER See your MD Sunday as planned You may need your antibiotics adjusted based on Blood culture results from your dialysis center (they will take a couple of days to come back)
--- NOTE | 2017-06-08 11:36 | RAD ---
INDICATION: Fever. Leukocytosis. Right-sided chest pain. COMPARISON: Chest x-ray 22,017 TECHNIQUE: PA and lateral dual-energy views were obtained. FINDINGS: Bones/Soft Tissues: There are no acute bony findings. Cardiomediastinal: The heart is normal in size. Central pulmonary vessels and interstitium are prominent suggesting mild interstitial congestion. Lungs: There is a patchy interstitial and alveolar infiltrate in the right lung base. The left lung is clear. Pleura: There are no pleural effusions. Other: None IMPRESSION: NEW RIGHT BASILAR INFILTRATE . SUSPECT MILD UNDERLYING INTERSTITIAL CONGESTION, UNCHANGED.
[2017-06-08] MEDS ORDERED: Levofloxacin TAB* 500 MG PO ONE (11:39)
== END 2017-06-08 12:10 | disposition home or self-care (01) ==
LOC: UCCORT 10:29
DX: J18.9 Pneumonia, unspecified organism (principal); I12.9 Hypertensive chronic kidney disease with stage 1 through stage 4 chronic kidney disease, or unspecified chronic kidney disease; N18.9 Chronic kidney disease, unspecified; Z99.2 Dependence on renal dialysis
CPT/HCPCS: 71020; 99212; G0463

== ENCOUNTER 2017-07-21 09:52 | Observation (INO) | payer MEDICARE, BC ==
[2017-07-21] MEDS ORDERED: fentaNYL* 50 MCG/ML 2 ML VIAL (100 MCG VIAL) IV SLOW PU ONE (10:23)
[2017-07-21] MEDS ORDERED: Midazolam* 1 MG/ML 2 ML VIAL (2 MG) IV ONE (10:23)
[2017-07-21] MEDS ORDERED: Midazolam* 1 MG/ML 2 ML VIAL (2 MG) ONE (10:25)
[2017-07-21] MEDS ORDERED: fentaNYL* 50 MCG/ML 2 ML VIAL (100 MCG VIAL) ONE (10:25)
[2017-07-21] MEDS ORDERED: Amiodarone 150 MG IVPREMIX* 150 MG/100 ML BAG IV ONE (10:27)
[2017-07-21] MEDS ORDERED: Midazolam IV for DRIP* 10 ML ONE (10:37)
[2017-07-21 11:07] LABS: Hematocrit 37 % (35-47); Hemoglobin 12.3 g/dl (12.0-16.0); Mean Corpuscular HGB Conc 33 g/dl (31-36); Mean Corpuscular Hemoglobin 34 pg (27-31); Mean Corpuscular Volume 102 fL (80-97); Mean Platelet Volume 8 um3 (7.4-10.4); Red Blood Count 3.65 10^6/ul (4.0-5.4); Red Cell Distribution Width 17 % (10.5-15); White Blood Count 13.2 10^3/ul (3.5-10.8)
[2017-07-21 11:21] LABS: Albumin 3.8 g/dL (3.2-5.2); BUN/Creatinine Ratio 6.1 (8-20); Calcium 9.5 mg/dL (8.6-10.3); EGFR African American 11.9 (>60); EGFR Non-African American 9.3 (>60); Globulin 2.6 g/dL (2-4); Magnesium 2.5 mg/dL (1.9-2.7); Total Bilirubin 0.7 mg/dL (0.2-1.0); Total Protein 6.4 g/dL (6.4-8.9)
[2017-07-21 11:46] LABS: Troponin I 0.11 ng/mL (<0.04)
[2017-07-21 12:02] LABS: TSH (Thyroid Stimulating Horm) 1.29 mcIU/mL (0.34-5.60)
[2017-07-21 13:01] LABS: Potassium 3.9 mmol/L (3.5-5.0)
--- NOTE | 2017-07-21 13:34 | RAD ---
INDICATION: Cough COMPARISON: Most recent comparison chest x-rays dated June 08, 2017 TECHNIQUE: PA and lateral views of the chest were obtained. FINDINGS: Similar to the prior chest x-ray there is mild cardiomegaly. The pulmonary vasculature appears engorged and indistinct. There is faint density obscuring the left lung base. Visualized bones are normal for the patient's age. There is no radiographic evidence of free air beneath the diaphragm IMPRESSION: CHEST X-RAY FINDINGS ARE MOST CONSISTENT WITH EXACERBATION OF CONGESTIVE HEART FAILURE WITH OR WITHOUT POSSIBLE CONSOLIDATION AT THE LEFT LUNG BASE.
[2017-07-21] MEDS ORDERED: Dextrose 50% Syringe 50 ML* 25 GM/50 ML SYRINGE IV PUSH PRN (13:51)
[2017-07-21] MEDS ORDERED: Torsemide TAB* 100 MG PO ONE (13:52)
--- NOTE | 2017-07-21 15:53 | CONS ---
CC: Dr. Biju Castillo; Dr. Maylin Hutchins CONSULTATION REPORT: DATE OF CONSULT: 07/21/17 HISTORY OF PRESENT ILLNESS: Ms. Green is a 67-year-old woman, followed by my partner, Dr. Biju Castillo, for paroxysmal atrial fibrillation. She has oxygen- dependent COPD and is on renal dialysis for end-stage renal disease as well. On Sunday, the patient's breathing was worse and in dialysis, they felt she was in atrial fibrill ation. On , she was seen by her primary care team, who did contact the cardiology office. The tentative plan was to check an EKG and if this confirmed AFib/flutter, she has the option of car dioversion the next day. She was seen by Dr. Castillo yesterday, Sunday. EKG confirmed atrial flutter , but this is late in the day and therefore elective cardioversion was not available late Sunday aft enena. The patient presented to the emergency room this morning for an elective cardioversion, still short of breath, and rhythm strips on ECG confirmed that she is in coarse AFib versus atrial flutter and c ontinued to be in a rapid ventricular rate. She underwent successful cardioversion. The lab check revealed she had a mild bump in her troponin at 0.11. The patient denies chest pain, pressure, heaviness, just the increased shortness of breath and rhonc horous cough. The patient does not have a history of increased alcohol intake or new medications other than the an tibiotics recently started for possible bronchitis. PAST MEDICAL HISTORY: 1. Paroxysmal atrial fibrillation, on Eliquis, status post cardioversions, August 2014 and May 2016. 2. Diastolic congestive heart failure. 3. End-stage renal disease, on hemodialysis. 4. COPD, on chronic oxygen 3 L nasal cannula. 5. Diabetes. 6. Hypertension. 7. Morbid obesity. 8. GERD. 9. Osteoporosis. 10. Gout. 11. Depression. 12. Incontinence. 13. Anemia. 14. Hypothyroid disease. 15. History of pneumonia in June 2017. PAST SURGICAL HISTORY: Includes: 1. Cholecystectomy. 2. Appendectomy. 3. Hysterectomy. 4. Bilateral knee replacements. 5. Fistula placement. 6. Lumbar fusion. 7. Right total knee replacement. 8. Left ACL repair. MEDICATIONS: Outpatient medications include: 1. Eliquis 2.5 mg b.i.d. 2. Lipitor 10 mg a day. 3. Vitamin B complex with folic acid. 4. Phos cap 667 mg t.i.d. 5. Cinacalcet 30 mg b.i.d. 6. Citalopram 10 mg daily. 7. Benadryl 25 mg b.i.d. 8. Colace 100 mg b.i.d. 9. Uloric 40 mg daily. 10. Fluticasone/salmeterol (Advair Diskus) 1 puff b.i.d. 11. Neurontin 100 mg t.i.d. 12. Levothyroxine 25 mcg a day. 13. Lisinopril 10 mg a day. 14. Magnesium oxide 400 mg b.i.d. 15. Reglan 10 mg b.i.d. 16. Metoprolol 25 mg a day. 17. Montelukast 10 mg a day. 18. MultiVites 1 tab daily. 19. Omeprazole 40 mg a day. 20. Lyrica 25 mg b.i.d. 21. Detrol LA 4 mg a day. 22. Torsemide 100 mg a day. 23. Incruse Ellipta 62.5 mcg a day. 24. Glipizide 10 mg a day. 25. Hydroxyzine (Atarax) 50 mg t.i.d. ALLERGIES: Include: TAPE (rash), HEPARIN (welts rash), SULFA (rash), MORPHINE, and she avoids nonst eroidals. FAMILY HISTORY: Significant in her mother has a history of renal insufficiency. There is a family h istory of atherosclerotic heart disease. SOCIAL HISTORY: The patient is a nonsmoker. Supportive family. No alcohol or recreational drug us e. REVIEW OF SYSTEMS: Negative for any increase in orthopnea. She does have a rhonchorous cough, no g reen or yellow sputum. Not sleeping as well. She denies hematuria, dysuria, change in bowel or rakan dder habits. No sinus or ear problems. She denies chest pain, pressure, heaviness, neck or arm disc omfort, or nausea. She denies being diaphoretic recently. All other 12-point review of systems was unremarkable. PHYSICAL EXAM: She is 5 feet 5 inches, weighs 144 pounds with a BMI of 24. In our office, her BMI was 44, not clear if ED record is accurate as on exam, she did appear morbidly obese, predominantly centripetally morbidly obese. HEENT: Pupils are equal and round. Mucous membranes moist. Neck: Obese without appreciable thyromegaly or increased JVP. Good carotid pulses, no audible bruits. Br eath sounds have diffuse rales and rhonchi and a rhonchorous cough. Coronary: S1 and S2, irregular ly irregular. I did not appreciate murmurs. Abdomen: Very overweight. Active bowel sounds. No e pigastric discomfort and I did not appreciate hepatomegaly. Lower extremities were warm and well pe rfused with nominal edema. DIAGNOSTIC STUDIES/LAB DATA: Outpatient studies include an echo from 08/30/15 with an ejection frac tion of 65%, trace aortic and tricuspid insufficiency, and mild mitral insufficiency. Her most recent stress test was a chemical stress test in August of 2015 through the office. Inpatient studies include her EKG confirming coarse AFib versus atrial flutter with a ventricular ra te of 110 beats a minute, QRS axis -30, normal intraventricular conduction x1, early PVC, and she degroot s diffuse but subtle ST depression and flattening and T-wave flattening. Repeat EKG following cardi oversion shows normal sinus rhythm 84 beats a minute, QRS axis -15, normal AV and IV conduction time , slight slurring of the upstroke. QT interval of [address] depression in the la teral leads, 1 aVL V4 through V6 in the setting of left ventricular hypertrophy and these likely rep resent repolarization abnormalities. Labs today, sodium 136, potassium still pending, chloride 97, bicarb 26, BUN 29, creatinine 4.7, glu cose 286. ALT of 22. Troponin #1 0.11. TSH 1.29. INR 0.97, PTT 24. White count 13.2, hemoglobin 12.3, hematocrit 37, mean cell volume elevated at 102, and platelets 188. Chest x-ray results are pending. IMPRESSION AND PLAN: In summary, Frannie Green is a 67-year-old woman with atrial fibrillation for the last 4 days with an increased shortness of breath as well as rhonchorous cough and possible avne estive heart failure based on her exam and history. The patient underwent successful cardioversion today, but labs revealed a mild elevation in troponin. For the atrial flutter, we will continue with Dr. Castillo's original plan of initiation of Multaq, ant iarrhythmic options are limited due to her renal insufficiency. She received 150 mg IV bolus right after her cardioversion and will start Multaq 400 mg b.i.d. For the patient's elevated troponin, she is very high risk for atherosclerotic heart disease with di abetes, hypertension, morbid obesity, and dyslipidemia, and family history. I advised admission to trend her troponins and consider inpatient updating her for a stress test at the least and if the troponins escalate we may want to consider cardiac catheterization. It is poss ible the elevation of troponin is related to the atrial fibrillation/flutter and tachycardic respons e and demand ischemia, small vessel disease, but we need to ensure that there is not significant lar ge vessel disease that could be stabilized more easily or rapidly. She and her [id number] who wa s present with her are understanding. If the chest x-ray confirms that she is in congestive heart failure presently, as she will not get d ialyzed for another 2 days, we could consider a second torsemide dose, she says she has had this in the past and has tolerated it and with our ability to follow her vitals carefully here, I think that this is an option. Additional recommendations will be made pending her clinical course and response to the above measur es. The hospitalist can make determinations about the potential need for antibiotics for possi ble bronchitis infection and help assist with management of her diabetes, which did not appear to be in good control. Thank you for allowing me to assist in this nice woman's care. [id number]/[facility] #: [id number]
--- NOTE | 2017-07-21 16:18 | HP ---
CC: Dr. Hutchins; Dr. Castillo* HOSPITAL MEDICINE HISTORY AND PHYSICAL: DATE OF ADMISSION: 07/21/17 PRIMARY CARE PHYSICIAN: Dr. Hutchins. BATH STEWARD/STEWARDESS: Dr. Castillo. ATTENDING PHYSICIAN: Dr. Terri Jiang* (dictation provided by Joy Conner NP) . CHIEF COMPLAINT: Tiredness and shortness of breath. HISTORY OF PRESENT ILLNESS: Ms. Green is a 67-year-old female with a past medical history of end-stage renal disease, on hemodialysis; diabetes; COPD, on 2 L nasal cannula; atrial fibrillation, who presents to the hospital today with concern for feeling very tired over the past 3 to 4 days with shortness of breath and AFib. Ms. Green states that she has been under a lot of stress as her mother fell and broke her leg and is now being transitioned into a rehab facility in [place]. She thought that her symptoms of feeling tired and little bit short of breath were associated with the stress and activity related to this. On Sunday, she went for dialysis and it was suspected that perhaps she was in atrial fibrillation. She followed up on with her primary care physician and saw an MAINTENANCE COORDINATOR there, an EKG was checked and it was suspected that she was in a sinus rhythm. On Sunday, she saw Dr. Castillo in his office and he confirmed that she was in fact in Aflutter. Plan was for cardioversion. The patient presented to the emergency room this morning to undergo cardioversion with Dr. Guo. Other than feelings of generalized fatigue and shortness of breath, she has also had a mild nonproductive cough when she went to primary care physician's office on . She was prescribed prednisone and azithromycin for suspected COPD exacerbation. The patient states that despite treatment with prednisone and azithromycin, she has had no real improvement in her symptoms. She denies any other complaints. She has had no fevers, no chills, no nausea, no vomiting, no abdominal pain, no diarrhea. In the emergency room, Ms. Green did undergo cardioversion with Dr. Guo, which was successful in returning her to sinus rhythm. She was given amiodarone x1, and speaking with Dr. Guo now, she would like to transition over to Multaq b.i.d., otherwise her white blood cell count is mildly elevated to 13.2 though I do note she is on prednisone. She has elevated BUN and creatinine consistent with her history of end-stage renal disease and she has a elevated troponin to 0.11. Chest x-ray shows concern for mild pulmonary vascular congestion. Ms. Green has had stress test in the past per Dr. Guo's report, which did not show any evidence of ischemia. Her last echocardiogram on file at the hospital is from 2014 and shows a normal ejection fraction and no evidence of wall motion abnormalities or valvular abnormalities. PAST MEDICAL HISTORY: 1. Paroxysmal atrial fibrillation/flutter. 2. Type 2 diabetes, non-insulin dependent. 3. End-stage renal disease, on hemodialysis. 4. COPD with chronic hypoxic respiratory failure, on 2 to 3 L nasal cannula at home as needed. 5. Hypertension. PAST SURGICAL HISTORY: 1. Cholecystectomy. 2. Appendectomy. 3. Hysterectomy. 4. Bilateral knee replacements. MEDICATIONS: 1. B complex with folic acid 1 tab p.o. daily. 2. Uloric 40 mg p.o. daily. 3. Multivitamin with mineral 1 tab p.o. daily. 4. Detrol LA 4 mg p.o. daily. 5. Umeclidinium/Incruse Ellipta 62.5 mcg inhaled daily. 6. Glipizide 10 mg p.o. daily. 7. Apixaban 2.5 mg p.o. b.i.d. 8. Atorvastatin 10 mg p.o. daily. 9. Azithromycin 250 mg p.o. daily. 10. Calcium acetate 667 mg p.o. t.i.d. 11. Cinacalcet 30 mg p.o. b.i.d. 12. Citalopram 10 mg p.o. daily. 13. Diphenhydramine 25 mg p.o. b.i.d. 14. Docusate 100 mg p.o. b.i.d. 15. Advair 250/50 one puff inhaled b.i.d. 16. Gabapentin 100 mg p.o. t.i.d. 17. Levothyroxine 25 mcg p.o. daily. 18. Magnesium oxide 400 mg p.o. b.i.d. 19. Metoclopramide 10 mg p.o. b.i.d. 20. Metoprolol tartrate 12.5 mg p.o. b.i.d. 21. Montelukast 10 mg p.o. daily. 22. Omeprazole 40 mg p.o. daily. 23. Pregabalin 25 mg p.o. b.i.d. 24. Torsemide 100 mg p.o. daily. 25. Hydroxyzine 50 mg p.o. t.i.d. 26. Prednisone 30 mg p.o. daily. FAMILY HISTORY: The patient reports her mother has chronic kidney disease. SOCIAL HISTORY: There is no report of alcohol, tobacco, or drug use. The patient lives with her mother normally, but her mother is now in rehab facility. She states that her sister, Dodie Glez, would be the healthcare proxy. REVIEW OF SYSTEMS: A 14-point review of systems was completed with Ms. Green and all those not mentioned above were negative. PHYSICAL EXAMINATION GENERAL: Ms. Green is sitting up in the bed. She is in no acute distress. VITAL SIGNS: Temperature 97.3, heart rate 81, respiratory rate 14, O2 saturation 99% on room air, blood pressure 133/82. LUNGS: Have crackles bilaterally with no accessory muscle use, no wheezing. HEART: S1, S2. No murmur, rub, or gallop. ABDOMEN: Soft, nontender with bowel sounds positive x4. NEURO: She is alert, she is oriented x3. She moves all extremities equally. There is no facial asymmetry or focal weakness. EXTREMITIES: No cyanosis, no edema. SKIN: Intact. DIAGNOSTIC STUDIES/LAB DATA: WBC 13.2, hemoglobin 12.3, hematocrit 37, platelet count 188. INR 0.97. Sodium 136, potassium 3.9, chloride 97, serum bicarbonate 26, BUN 29, creatinine 4.72, glucose 286. Troponin 0.11. Chest x-ray shows concern for pulmonary vascular congestion. EKG on arrival shows atrial flutter with a heart rate of about 100. Followup EKG status post cardioversion shows sinus rhythm, the heart rate of about 80, there is no evidence of ischemia. ASSESSMENT AND PLAN: Ms. Green is a 67-year-old female with a past medical history of paroxysmal atrial fibrillation/flutter; end-stage renal disease, on hemodialysis; vje-rtyjpbi-txshooqgy diabetes; chronic hypoxic respiratory failure with chronic obstructive pulmonary disease, on intermittent home O2, presents today at the hospital with concern for feeling tired and short of breath, found to be in atrial flutter outpatient with planned cardioversion, which was successful in restoring sinus rhythm in the emergency room. She has been noted to have an elevated troponin to 0.11 and concern for pulmonary vascular congestion secondary likely to atrial flutter with shortness of breath , crackles, and abnormal chest x- ray. Our plans are for observation in the hospital for the followin. Atrial flutter: The patient remains in normal sinus rhythm. Appreciate consultation from Dr. Guo. Dr. Castillo has recommended to start Multaq now and continue 400 mg p.o. b.i.d. She is on Eliquis for anticoagulation. 2. Elevated troponin: I suspect this is secondary to atrial fibrillation/ flutter, but plan to check troponins x2, should be continued to be monitored on the telemetry unit. If her troponins continue to rise, we may have consideration for stress testing likely on Sunday or more emergent intervention as needed. 3. Congestive heart failure: The patient does have pulmonary vascular congestion. The patient has been on hemodialysis and states that her last dialysis on Sunday left her at a low dry weight and it was felt that she was not fluid overloaded. However, she does show congestion on the chest x-ray and is symptomatic again secondary likely to the atrial flutter. She is on torsemide daily and plan to add an additional dose of torsemide this evening. The patient reports that this has been tolerated well in the past. We will recheck all labs tomorrow. She will continue on oxygen as needed. We will monitor I's and O's and daily weights. 4. Type 2 diabetes: Plan to hold glipizide and provide lispro sliding scale with meals and a consistent carbohydrate diet. 5. End-stage renal disease, on hemodialysis. Continue management per Dr. Benítez. The patient will have a renal diet. 6. Hypertension: Plan to continue metoprolol, but hold lisinopril in the setting of need for diuretics. 7. Chronic obstructive pulmonary disease: No evidence of acute flare. At this point, she was started on prednisone and azithromycin by the primary care provider's office. She has absolutely no wheezing, but may be that this is due to that treatment and I plan to continue a short course of prednisone. 8. Hyperlipidemia: Continue Lipitor. 9. Hypothyroidism. Continue levothyroxine. 10. DVT prophylaxis: With Eliquis and SCDs. 11. Code status: Full code. TIME SPENT: Approximately 60 minutes was spent on the admission of this patient , more than half of the time was spent with the patient at the bedside reviewing the events leading up to this hospitalization, performing the physical examination, and reviewing the plan of care. JOY CONNER NP ADDENDUM TO HISTORY AND PHYSICAL: Frannie Green is a 67-year-old female with history of paroxysmal atrial fibrillation, COPD, as well as end-stage renal disease, on dialysis, who has been symptomatic with another bout of atrial fibrillation for the past couple of days. The patient was brought in to the emergency department with a plan of cardioversion. The patient was cardioverted by Dr. Guo in the emergency department but she was noted to have laboratory abnormalities with leukocytosis and troponin of 0.1. The patient is going to be placed on overnight observation for further monitoring and Cardiology consult to be continued. For further details of the patient's presentation and plan, please see history and physical dictated by Joy Conner NP, on 07/21/17, with which I agree. Terri Jiang MD [id number]/CPS #: [id number]/CPS #: [id number] NABILA
[2017-07-21] MEDS: Calcium Acetate CAP* 667 MG PO SCH ×2 (16:35→21:48)
[2017-07-21] MEDS: hydrOXYzine HCL TAB* 50 MG PO SCH ×2 (16:35→21:50)
[2017-07-21] MEDS: Dronedarone TAB* 400 MG PO SCH ×2 (16:35→21:48)
[2017-07-21] MEDS: Gabapentin CAP(*) 100 MG PO SCH ×2 (16:35→21:49)
--- NOTE | 2017-07-21 16:50 | HP ---
HISTORY AND PHYSICAL: ADDENDUM: Frannie Green is a 67-year-old female with history of paroxysmal atrial fibrillation, LOGISTIC SPECIALIST D, as well as end-stage renal disease, on dialysis, who has been symptomatic with another bout of at rial fibrillation for the past couple of days. The patient was brought in to the emergency departmen t with a plan of cardioversion. The patient was cardioverted by Dr. Guo in the emergency depart ment but she was noted to have laboratory abnormalities with leukocytosis and troponin of 0.1. The patient is going to be placed on overnight observation for further monitoring and Cardiology consult to be continued. For further details of the patient's presentation and plan, please see history and physical dictated by Joy Conner NP, on 07/21/17, with which I agree. [id number]/[facility] #: [id number]
[2017-07-21] MEDS: Insulin LISPRO* 1 UNITS UNIT SUBCUT SCH (17:18)
[2017-07-21] MEDS: Mometasone/Formoter 200/5 MDI INH SCH (19:49)
--- NOTE | 2017-07-21 21:20 | CARD ---
CC: Maylin Hutchins MD; Biju Castillo MD ELECTRICAL CARDIOVERSION NOTE: DATE OF PROCEDURE: 07/21/17 PROCEDURE: Electrical cardioversion. INDICATION: Atrial flutter, rapid ventricular rate, and shortness of breath. PREPROCEDURE DIAGNOSIS: Atrial flutter with tachycardic ventricular response. POSTPROCEDURE DIAGNOSIS: Atrial flutter with tachycardic ventricular response. PROCEDURE IN DETAIL: The patient states she has taken her Eliquis faithfully for over a month. The indications, risks, and benefits were discussed with the patient in depth and she is amenable to pr oceeding. The patient received a total of 5 mg of Versed and 50 mcg of fentanyl for sedation following a time- out procedure. AP patch has been placed on the chest wall and once sedated, the patient received 150 joules of ener gy synchronously delivered across the chest wall with successful cardioversion to normal sinus rhyth m. The patient was hemodynamically stable throughout the procedure and in recovery and there were no co mplications. [id number]/[facility] #: [id number]
[2017-07-21] MEDS: Cinacalcet TAB* 30 MG PO SCH (21:47)
[2017-07-21] MEDS: Pregabalin CAP(*) 25 MG PO SCH (21:47)
[2017-07-21] MEDS: Apixaban* 2.5 MG TAB PO SCH (21:47)
[2017-07-21] MEDS: diPHENhydraMINE PO* 25 MG PO SCH (21:48)
[2017-07-21] MEDS: Docusate CAP* 100 MG PO SCH ×2 (21:50→21:52)
[2017-07-21] MEDS: Magnesium Oxide TAB* 400 MG PO SCH (21:50)
[2017-07-21] MEDS: Metoclopramide TAB* 10 MG PO SCH (21:50)
[2017-07-21] MEDS: Metoprolol Tartrate TAB* 25 MG PO SCH (21:50)
[2017-07-22 05:47] LABS: BUN/Creatinine Ratio 8.8 (8-20); Calcium 8.6 mg/dL (8.6-10.3); EGFR African American 8.6 (>60); EGFR Non-African American 6.7 (>60); Potassium 4.6 mmol/L (3.5-5.0)
[2017-07-22] MEDS: Mometasone/Formoter 200/5 MDI INH SCH (07:44)
--- NOTE | 2017-07-22 08:30 | ED ---
Maurizio Hastings Nikita, scribed for Rolando Brush MD on 07/21/17 at 1031 . HPI Cardiac - HPI Summary HPI Summary: This patient is a 67 year old F presenting to ED with a chief complaint of aFib since 3 days ago. The patient rates the pain 0/10 in severity. Symptoms aggravated by nothing. Symptoms alleviated by nothing. Patient reports SOB ( uses eliquis at home daily) and a cough. Patient denies CP. Cardioversion was scheduled by Dr. Castillo for [address] Guo said she would come to the ED to cardiovert her here in the ED. - History of Current Complaint Chief Complaint: EDDysrhythmPalp Stated Complaint: AFIB Time Seen by Provider: 07/21/17 10:05 Hx Obtained From: Patient Hx Last Menstrual Period: n/a Onset/Duration: Started Days Ago - 3 days ago, Still Present Timing: Constant, Lasting Days Current Severity: None Pain Intensity: 0 Pain Scale Used: 0-10 Numeric Aggravating Factor(s): Nothing Alleviating Factor(s): Nothing Associated Signs and Symptoms: Positive: Other: - Patient reports aFib since 3 days ago, SOB (uses eliquis at home daily) and a cough. Patient denies CP. - Additional Pertinent History Primary Care Physician: DARWIN - Allergy/Home Medications Allergies/Adverse Reactions: Allergies Allergy/AdvReac Type Severity Reaction Status Date / Time Adhesive Tape Allergy Rash Verified 06/08/17 10:43 Heparin Allergy WELTS, Verified 06/08/17 10:43 ITCHY RASH Sulfa Antibiotics Allergy Rash Verified 06/08/17 10:43 Morphine AdvReac SENSITIVE Verified 06/08/17 10:43 TO - STATES SMALL INTERMITTENT DOSES OK avoids NSAIDS AdvReac See Comment Uncoded 06/08/17 10:43 Home Medications: Home Medications Azithromycin TAB* [Zithromax TAB (Z-ROBERTO) 250 mg #6 tabs] 250 mg PO DAILY [History Confirmed 07/21/17] predniSONE TAB* [Deltasone TAB*] 30 mg PO DAILY 07/21/17 [History Confirmed ] PMH/Surg Hx/FS Hx/Imm Hx Endocrine/Hematology History: Reports: Hx Diabetes, Hx Anemia Cardiovascular History: Reports: Hx Congestive Heart Failure, Hx Hypertension, Other Cardiovascular Problems/Disorders - atrial fib Denies: Hx Pacemaker/ICD Respiratory History: Reports: Hx Asthma, Hx Chronic Bronchitis, Hx Chronic Obstructive Pulmonary Disease (COPD), Hx Pneumonia, Hx Seasonal Allergies, Other Respiratory Problems/Disorders - PNUEMONIA LAS EPISODE A FEW YEARS AGO GI History: Reports: Hx Gastroesophageal Reflux Disease Denies: Other GI Disorders History: Reports: Hx Dialysis - ESRD, Hx Kidney Infection, Hx Kidney Stones Denies: Other Problems/Disorders Musculoskeletal History: Reports: Hx Arthritis - OSTEO, Hx Back Problems, Hx Gout - Pt reports "from time to time.", Other Musculoskeletal History - Degenerative discs, osteoarthritis Sensory History: Reports: Hx Cataracts, Hx Contacts or Glasses - reading only Denies: Hx Hearing Aid Opthamlomology History: Reports: Hx Cataracts, Hx Contacts or Glasses - reading only Neurological History: Denies: Hx Headaches Psychiatric History: Reports: Hx Anxiety, Hx Depression Denies: Hx Panic Disorder - Cancer History Hx Chemotherapy: No Hx Radiation Therapy: No - Surgical History Surgery Procedure, Year, and Place: RT KNEE REPLACEMENT 2011. LT KNEE 09/13. LSP SURGERY X4 (2001,2003X2, 2003). GALLBLADDER 1996. TOTAL HYSTERECTOMY 1987. TONSILS AGE 7. LT KNEE ACL 1996 Hx Anesthesia Reactions: Yes - RESP. ARREST-2011- WHILE ON THE MORPHINE DRIP PER PATIENT Infectious Disease History: No Infectious Disease History: Denies: Traveled Outside the [place] in Last 30 Days - Family History Known Family History: Positive: Hypertension - Social History Alcohol Use: None Hx Substance Use: No Substance Use Type: Reports: None Hx Tobacco Use: No Smoking Status (MU): Never Smoked Tobacco Review of Systems Positive: Other - aFib. Negative: Chest Pain Positive: Shortness Of Breath, Cough All Other Systems Reviewed And Are Negative: Yes Physical Exam - Summary Physical Exam Summary: GENERAL: ~Patient is a well-developed and nourished elderly female who is lying comfortable in the stretcher. ~Patient is not in any acute respiratory distress. HEAD AND FACE: No signs of trauma. ~No ecchymosis, hematomas or skull depressions. No sinus tenderness. EYES: PERRLA, EOMI x 2, No injected conjunctiva, no nystagmus. EARS: Hearing grossly intact. Ear canals and tympanic membranes are within normal limits. MOUTH: Oropharynx within normal limits. NECK: Supple, trachea is midline, no adenopathy, no JVD, no carotid bruit, no c- spine tenderness, neck with full ROM. CHEST: Symmetric, no tenderness at palpation LUNGS: Clear to auscultation bilaterally. No wheezing or crackles. CVS: Iregular rate and rhythm at 107-110 bpm. Afib fistula in R arm ABDOMEN: Soft, non-tender. No signs of distention. No rebound no guarding, and no masses palpated. Bowel sounds are normal. EXTREMITIES: FROM in all major joints, no edema noted, no cyanosis or clubbing. NEURO: Alert and oriented x 3. No acute neurological deficits. Speech is normal and follows commands. SKIN: Dry and warm, Multiple skin bruises probably secondary to eliquis Triage Information Reviewed: Yes Vital Signs On Initial Exam: Initial Vitals Temp Pulse Resp BP Pulse Ox 97.3 F 111 16 127/66 95 07/21/17 09:58 07/21/17 09:58 07/21/17 09:58 07/21/17 09:58 07/21/17 09:58 Vital Signs Reviewed: Yes Diagnostics - Vital Signs Vital Signs Temp Pulse Resp BP Pulse Ox 07/21/17 09:58 97.3 F 111 16 127/66 95 - Laboratory Result Diagrams: 07/21/17 10:27 07/21/17 10:27 Lab Statement: Any lab studies that have been ordered have been reviewed, and results considered in the medical decision making process. - Radiology CXR Radiology Interpretation Completed By: Radiologist - CHEST X-RAY FINDINGS ARE MOST CONSISTENT WITH EXACERBATION OF CONGESTIVE HEART FAILURE WITH OR WITHOUT POSSIBLE CONSOLIDATION AT THE LEFT LUNG BASE. ED physician has reviewed this radiology report and agrees. - EKG 1017 Cardiac Rate: Other Rate - atrial flutter at 109 bpm 1042 Cardiac Rate: NL - 84 bpm after cardioversion EKG Interpretation: no ST elevations, normal axis Disposition - Course Assessment/Plan: This patient is a 67 year old F presenting to ED with a chief complaint of aFib since 3 days ago. The patient rates the pain 0/10 in severity. Symptoms aggravated by nothing. Symptoms alleviated by nothing. Patient reports SOB (uses eliquis at home daily) and a cough. Patient denies CP. CHEST X-RAY FINDINGS ARE MOST CONSISTENT WITH EXACERBATION OF CONGESTIVE HEART FAILURE WITH OR WITHOUT POSSIBLE CONSOLIDATION AT THE LEFT LUNG BASE. ED physician has reviewed this radiology report and agrees. EKG at 1017 reveals atrial flutter at 109 bpm. After the cardioversion, at 1042, EKG reveals sinus rhythm at 84 bpm, no ST elevations, and normal axis. Blood work is without significant abnormalities except WBC 13.2, chronic renal failure, and troponin of .11. EKG shows aFib with RVR. Dr. Guo came and did cardioversion with success. Now the pt s EKG shows NSR. However because of increased troponin, the doctor recommends he be admitted to hospitalist services. Therefore she spoke with Dr. Jiang who accepts pt for admission. The pt is hemodynamically stable, alert and oriented x3. - Diagnoses Provider Diagnoses: Atrial fibrillation, increased troponin, r/o acute coronary syndrome - Physician Notifications Discussed Care Of Patient With: Terri Jiang Instructed by Provider To: Other - Dr. Jiang saw the pt in the ED and accepted pt for admission. Discharge - Discharge Plan Condition: Stable Disposition: ADMITTED TO [facility] The documentation as recorded by the Maurizio herron Nikita accurately reflects the service I personally performed and the decisions made by , Rolando Brush MD.
[2017-07-22] MEDS ORDERED: Azithromycin TAB* 250 MG PO SCH (09:00)
[2017-07-22] MEDS ORDERED: Citalopram TAB* 10 MG PO SCH (09:00)
[2017-07-22] MEDS ORDERED: Omeprazole CAP* 20 MG PO SCH (09:00)
[2017-07-22] MEDS ORDERED: predniSONE TAB* 10 MG PO SCH (09:00)
[2017-07-22] MEDS ORDERED: Atorvastatin* 10 MG TAB PO SCH (09:00)
[2017-07-22] MEDS ORDERED: Torsemide TAB* 100 MG PO SCH (09:00)
[2017-07-22] MEDS ORDERED: Montelukast Sodium TAB* 10 MG PO SCH (09:00)
[2017-07-22] MEDS ORDERED: Levothyroxine TAB* 25 MCG TAB PO SCH (09:00)
[2017-07-22] MEDS: Insulin LISPRO* 1 UNITS UNIT SUBCUT SCH ×2 (09:02→12:32)
[2017-07-22] MEDS: Pregabalin CAP(*) 25 MG PO SCH (09:03)
[2017-07-22] MEDS: Apixaban* 2.5 MG TAB PO SCH (09:04)
[2017-07-22] MEDS: Magnesium Oxide TAB* 400 MG PO SCH (09:04)
[2017-07-22] MEDS: Gabapentin CAP(*) 100 MG PO SCH (09:04)
[2017-07-22] MEDS: Metoprolol Tartrate TAB* 25 MG PO SCH (09:05)
[2017-07-22] MEDS: hydrOXYzine HCL TAB* 50 MG PO SCH (09:05)
[2017-07-22] MEDS: Dronedarone TAB* 400 MG PO SCH (09:05)
[2017-07-22] MEDS: Cinacalcet TAB* 30 MG PO SCH (09:05)
[2017-07-22] MEDS: Metoclopramide TAB* 10 MG PO SCH (09:05)
[2017-07-22] MEDS: diPHENhydraMINE PO* 25 MG PO SCH (09:07)
[2017-07-22] MEDS: Docusate CAP* 100 MG PO SCH (09:07)
[2017-07-22] MEDS: Calcium Acetate CAP* 667 MG PO SCH (09:07)
[2017-07-22 11:35] VITALS: BP 98/41
--- NOTE | 2017-07-22 15:35 | PN ---
Hospitalist Progress Note Patient called after discharge that her Multaq required prior authorization. Spoke with Dr Guo who called in a Rx for amiodarone 200 mg qd and she will send a message to Dr Castillo to start prior auth for Multaq.
--- NOTE | 2017-07-23 03:40 | DS ---
CC: Dr. Hutchins; Biju Castillo MD* DISCHARGE SUMMARY: DATE OF ADMISSION: 07/21/17 DATE OF DISCHARGE: 07/22/17 PRIMARY CARE PROVIDER: Dr. Hutchins. PRIMARY DRAFTER ELECTRONIC: Biju Castillo MD CONSULTING DRAFTER ELECTRONIC: Dr. Guo. DISCHARGING PROVIDER: CECILLE Valles SUPERVISING PHYSICIAN: Trinidad Villasenor MD* (dictated by CECILLE Valles). PRIMARY DISCHARGE DIAGNOSES: 1. Rapid atrial fibrillation, status post cardioversion. 2. Demand ischemia secondary to tachycardia. SECONDARY DISCHARGE DIAGNOSES: 1. End-stage renal disease, on hemodialysis, followed by Dr. Benítez. 2. Type 2 diabetes. 3. Hypertension. 4. Chronic obstructive pulmonary disease with possible recent acute exacerbation. 5. Hyperlipidemia. 6. Hypothyroidism. DISCHARGE MEDICATIONS: 1. Eliquis 2.5 mg p.o. twice daily. 2. Atorvastatin 10 mg p.o. daily. 3. Vitamin B complex with C and folic acid 1 tablet p.o. daily. 4. PhosLo capsule 667 mg p.o. 3 times daily. 5. Sensipar 30 mg p.o. twice daily. 6. Celexa 10 mg p.o. daily. 7. Benadryl 25 mg p.o. twice daily. 8. Docusate 100 mg p.o. twice daily. 9. Multaq 400 mg p.o. twice daily. 10. Uloric 40 mg p.o. daily. 11. Advair 250/50 one puff inhaled twice daily. 12. Gabapentin 100 mg p.o. 3 times daily. 13. Levothyroxine 25 mcg p.o. daily. 14. Magnesium oxide 400 mg p.o. twice daily. 15. Reglan 10 mg p.o. twice daily. 16. Metoprolol tartrate 12.5 mg p.o. twice daily. 17. Singulair 10 mg p.o. daily. 18. Multivitamin 1 tablet p.o. daily. 19. Omeprazole 40 mg p.o. daily. 20. Lyrica 25 mg p.o. twice daily. 21. Detrol LA 4 mg p.o. daily. 22. Torsemide 100 mg p.o. daily. 23. Incruse 62.5 mcg inhaled daily. 24. Glipizide 10 mg p.o. daily. 25. Hydroxyzine 50 mg p.o. 3 times daily. 26. Prednisone at a tapering dose per primary care. Medications changes: Start Multaq per Cardiology recommendation. HOSPITAL IMAGIN. Chest x-ray shows pulmonary edema. 2. Initial EKG shows atrial flutter with a rate of about 120 beats per minute. Postcardioversion shows sinus rhythm. HOSPITAL COURSE: This is a 67-year-old female with end-stage renal disease, on hemodialysis, diabetes, COPD, and paroxysmal atrial fibrillation who presented to the emergency department with complaints of fatigue and shortness of breath. The patient has been seen by her primary care provider and public works director with these complaints. She was started on azithromycin and prednisone for suspected COPD exacerbation by her primary care provider without significant improvement in her symptoms. She was seen by her public works director, was found to be in atrial fibrillation and an outpatient cardioversion was planned. The patient subsequently presented to the emergency department with worsening symptoms and was found to be in atrial fibrillation with a rapid rate of about 110 beats per minute. She underwent cardioversion with Dr. Guo in the emergency department and was subsequently admitted for additional observation. Initial labs showed mild leukocytosis, but this is in the setting of recent steroid use and her troponin was elevated to 0.11, but the patient was not having complaints of chest pain nor were there acute ischemic changes on EKG. The patient remained in a normal sinus rhythm overnight and remained free of chest pain or palpitations. She reported that her prior complaints of dyspnea had improved somewhat. Her troponin was trended down to 0.08 and again, there was no acute ischemic changes noted. DISPOSITION AND FOLLOWUP PLAN: The patient is being discharged to home. Per Cardiology recommendation, the patient has been started on Multaq following cardioversion. She received instructions to please contact the office of Dr. Castillo for followup within the next week as well as her primary care provider within the next 1 to 2 weeks especially if her complaints of shortness of breath persist. She was given instructions to stop her azithromycin after starting Multaq and continue to follow the steroid taper prescribed by her primary care provider. TIME SPENT: Greater than 30 minutes were spent on this discharge. CECILLE VALLES [id number]/[facility] #: [id number] [facility] FACILITYEusebio
== END 2017-07-22 14:00 | disposition home or self-care (01) ==
LOC: ED 09:52 → MEDTELE 13:46
PROVIDERS: ADMIT Internal Medicine; ATTEND Internal Medicine
PROC: 5A2204Z Restoration of Cardiac Rhythm, Single (ICD-10-PCS; principal; 2017-07-21)
DX: I48.91 Unspecified atrial fibrillation (principal); Z79.01 Long term (current) use of anticoagulants; I24.8 Other forms of acute ischemic heart disease; I13.2 Hypertensive heart and chronic kidney disease with heart failure and with stage 5 chronic kidney disease, or end stage renal disease; I50.30 Unspecified diastolic (congestive) heart failure; E11.22 Type 2 diabetes mellitus with diabetic chronic kidney disease; N18.6 End stage renal disease; Z99.2 Dependence on renal dialysis; R74.8 Abnormal levels of other serum enzymes; J44.9 Chronic obstructive pulmonary disease, unspecified; E78.5 Hyperlipidemia, unspecified; E03.9 Hypothyroidism, unspecified; Z79.899 Other long term (current) drug therapy; Z88.2 Allergy status to sulfonamides; Z88.5 Allergy status to narcotic agent; R06.02 Shortness of breath
CPT/HCPCS: 36415; 71020; 80048; 80053; 83735; 84443; 84484; 85025; 85610; 85730; 93005; 94640; 94760; 96374; 96375; 99285; A9270-GY; G0378; J0282; J2250; J3010; J7512